=== PATIENT | female | born 1990 | race African-American/Black ===

== ENCOUNTER 2019-08-13 05:23 | Inpatient (IN) ==
[2019-08-13] MEDS ORDERED: CITRIC ACID/SODIUM CITRATE 30 ML UDCUP PO ONE (05:36)
[2019-08-13] MEDS ORDERED: CLINDAMYCIN INJ 900 MG in PREMIX 1 EACH IV ONE (05:36)
[2019-08-13] MEDS ORDERED: INFLUENZA VIRUS VACCINE 0.5 ML SYRINGE IM ONE (05:57)
[2019-08-13 06:02] LABS: Basophils % 0.4 % (0.0-0.8); Eosinophils # 0.2 10*3/uL (0.0-0.87); Eosinophils % 2.2 % (0.00-10.9); Hematocrit 33.2 VOL% (35.7-47.0); Lymphocytes # 2.1 10*3/uL (1.4-4.0); Lymphocytes % 21.6 % (21.3-54.2); Mean Corpuscular HGB Conc 33.1 GM/DL (32-36); Mean Corpuscular Volume 100.3 FL (87-102); Mean Platelet Volume 10.3 FL (9.6-12.0); Monocytes % 9.8 % (1.7-12.7); Platelet Count 237 T/CUMM (130-400); Red Blood Count 3.31 MC/CUMM (3.8-5.5); Red Cell Distribution Width 13.7 % (9.3-17.3); White Blood Count 9.9 T/CUMM (4-12)
[2019-08-13] MEDS: LACTATED RINGERS 1,000 ML IV SCH ×2 (06:29→07:18)
[2019-08-13] MEDS ORDERED: OXYTOCIN/LR 20 UNIT/1,000 ML BAG IV SCH (07:00)
[2019-08-13] MEDS ORDERED: FAMOTIDINE 20 MG/2 ML VIAL IV ONE (07:11)
[2019-08-13] MEDS ORDERED: DEXAMETHASONE 4 MG/1 ML VIAL ONE (08:49)
[2019-08-13] MEDS ORDERED: EPINEPHrine 1 MG/ML VIAL ONE (08:49)
[2019-08-13] MEDS ORDERED: BUPIVACAINE 0.5% 50 ML VIAL ONE (08:49)
[2019-08-13 09:06] LABS: Amorphous Crystals,Urine Few /HPF (Few); Apearance,Urine CLEAR (Clear); Bacteria,Urine Occasional /HPF (Few); Bilirubin,Urine Negative (Negative); Blood, Urine Negative (Negative); Glucose,Urine (UA) Negative (Negative); Ketones,Urine 5 mg/dL (Negative); Mucus,Urine Occasional /LPF (Occasional); Nitrite,Urine Negative (Negative); Protein,Urine Negative; RBC,Urine <1 /HPF (0-4); Squamous Epithelial Cell,Urine Occasional /HPF (0-10); Urine Color Yellow (Yellow); Urine Specific Gravity 1.012 (1.001-1.035); Urine Urobilinogen < 2.0 EU/DL (0.2-1.0); WBC,Urine 1 /HPF (0-6)
[2019-08-13] MEDS ORDERED: DIPH/TET/ACEL PERT BOOSTER VACCINE 0.5 ML VIAL IM ONE (09:25)
[2019-08-13] MEDS ORDERED: OXYTOCIN/LR 20 UNIT/1,000 ML BAG IV ONE (09:25)
[2019-08-13] MEDS ORDERED: BISACODYL 10 MG SUPP RECTAL PRN (09:25)
[2019-08-13] MEDS ORDERED: HYDROCORTISONE 2.5% RECTAL CREAM 30 GM TUBE TOP PRN (09:25)
[2019-08-13] MEDS ORDERED: LANOLIN 50% CREAM 0.3 OZ TUBE TOP PRN (09:25)
[2019-08-13] MEDS ORDERED: oxyCODONE/ACETAMINOPHEN 5-325 MG TABLET PO PRN (09:25)
[2019-08-13] MEDS ORDERED: WITCH HAZEL PADS 100/JAR TOP PRN (09:25)
[2019-08-13] MEDS ORDERED: MEASLES/MUMPS/RUBELLA VACCINE 0.5 ML VIAL SUBCUT ONE (09:25)
[2019-08-13] MEDS ORDERED: RHO(D) IMMUNE GLOBULIN 300 MCG SYRINGE IM ONE (09:25)
[2019-08-13] MEDS ORDERED: ACETAMINOPHEN 325 MG TABLET PO PRN (09:25)
[2019-08-13] MEDS ORDERED: ONDANSETRON 4 MG/2 ML VIAL IV PRN (09:25)
[2019-08-13] MEDS ORDERED: BENZOCAINE 20%/MENTHOL 0.5% SPRAY 56 GM CAN TOP PRN (09:25)
[2019-08-13] MEDS ORDERED: BUPIVACAINE SPINAL 0.75% 2 ML AMP SPINAL ONE (12:37)
[2019-08-13] MEDS ORDERED: fentaNYL 100 MCG/2 ML VIAL ONE (12:38)
[2019-08-13] MEDS ORDERED: ONDANSETRON 4 MG/2 ML VIAL ONE (12:38)
[2019-08-13] MEDS ORDERED: MORPHINE 10 MG/10 ML VIAL ONE (12:38)
[2019-08-13] MEDS: CLINDAMYCIN INJ 900 MG in PREMIX 1 EACH IV SCH ×2 (15:58→23:39)
[2019-08-13] MEDS: oxyCODONE/ACETAMINOPHEN 5-325 MG TABLET PO PRN ×2 (16:43→22:17)
[2019-08-13] MEDS: DOCUSATE SODIUM 100 MG CAPSULE PO SCH (20:13)
[2019-08-14 05:54] LABS: Basophils # 0.1 10*3/uL (0.0-0.2); Basophils % 0.3 % (0.0-0.8); Eosinophils # 0.1 10*3/uL (0.0-0.87); Eosinophils % 0.8 % (0.00-10.9); Hematocrit 30.1 VOL% (35.7-47.0); Hemoglobin 10.1 GM/DL (12.0-16.0); Immature Granulocytes Absolute 0.16 #; Lymphocytes # 2.7 10*3/uL (1.4-4.0); Lymphocytes % 17.3 % (21.3-54.2); Mean Corpuscular HGB Conc 33.6 GM/DL (32-36); Mean Corpuscular Volume 99.3 FL (87-102); Mean Platelet Volume 10.6 FL (9.6-12.0); Monocytes % 7.4 % (1.7-12.7); Neutrophils % 73.2 % (38.7-73.9); Platelet Count 216 T/CUMM (130-400); Red Blood Count 3.03 MC/CUMM (3.8-5.5); Red Cell Distribution Width 13.3 % (9.3-17.3); White Blood Count 15.4 T/CUMM (4-12)
[2019-08-14] MEDS: IBUPROFEN 800 MG TABLET PO PRN ×3 (07:31→22:11)
[2019-08-14] MEDS: DOCUSATE SODIUM 100 MG CAPSULE PO SCH ×2 (08:36→20:18)
[2019-08-14] MEDS: MULTIVITAMIN (PRENATAL) TABLET PO SCH (09:20)
[2019-08-14] MEDS ORDERED: SIMETHICONE CHEW 80 MG TABLET PO PRN (12:25)
[2019-08-14] MEDS: MAGNESIUM HYDROXIDE SUSP 30 ML UDCUP PO PRN (20:18)
[2019-08-14] MEDS: oxyCODONE/ACETAMINOPHEN 5-325 MG TABLET PO PRN (22:11)
[2019-08-15] MEDS: oxyCODONE/ACETAMINOPHEN 5-325 MG TABLET PO PRN ×2 (04:08→10:45)
[2019-08-15] MEDS: IBUPROFEN 800 MG TABLET PO PRN (04:09)
[2019-08-15 07:23] VITALS: BP 126/69
[2019-08-15] MEDS: MULTIVITAMIN (PRENATAL) TABLET PO SCH (08:41)
[2019-08-15] MEDS: MAGNESIUM HYDROXIDE SUSP 30 ML UDCUP PO PRN (08:41)
[2019-08-15] MEDS: DOCUSATE SODIUM 100 MG CAPSULE PO SCH (08:41)
== END 2019-08-15 12:05 | disposition home or self-care (01) | DRG 540 ==
LOC: N.LD 05:23 → N.OB 12:58
PROVIDERS: ADMIT Specialist; ATTEND Specialist
PROC: LDCSECT (ICD-10-PCS; 2019-08-13 08:45)